=== PATIENT | female | born 1990 | race African-American/Black ===

== ENCOUNTER 2016-05-27 08:30 | Day surgery (SDC) | payer OTHER ==
[2016-05-27 09:45] LABS: BASOPHIL 0.6 % (0-2.0); EOSINOPHIL 1.3 % (0-4.5); MCHC 30.9 g/dl (32.0-36.0); MEAN CELL VOLUME 64.7 fl (80-96); MEAN PLT VOLUME 8.3 fl (7.5-11.1); NEUTROPHILS 64.6 % (42.8-82.8); PLATELET COUNT 240 K/MM3 (134-434); RDW 19.3 % (11.6-15.6); WHITE BLOOD COUNT 5.3 K/mm3 (4.0-10.0)
[2016-05-27 09:58] VITALS: BMI 34.9
[2016-05-27 11:36] LABS: HYPOCHROMIA 3+; PLATELET ESTIMATE ADEQUATE (NORMAL); POLYCHROMASIA 1+
[2016-05-27 11:37] LABS: ANISOCYTOSIS 1+; MICROCYTOSIS 2+; TARGET CELLS 1+
[2016-05-27] MEDS ORDERED: SODIUM CHLORIDE 1,000 ML IV SCH ×3 (11:45→12:15)
[2016-05-27 16:10] VITALS: BP 95/52; PULSE 90; TEMP 98.1
--- NOTE | 2016-05-27 16:11 | HP ---
Admitting History and Physical - Admission Chief Complaint: Here for blood transfusion 2/2 symptomatic iron deficiency anemia. History of Present Illness: 25 y/o with SIUP at 32.5 weeks gestation here for blood transfusion for Iron deficiency anemia. Hgb has been 7.2 for the past 30 days even on Iron therapy orally TID. Pt with occasional SOB, denies syncope or palpitations. Feels tired, but no malaise/weakness. History Source: Patient, Medical Record Limitations to Obtaining History: No Limitations - Past Medical History Cardiovascular: No: HTN Pulmonary: No: Asthma Gastrointestinal: No: Gastritis ...LMP: 10/16/15 ...: Yes ...: 3 ...Para: 1 Heme/Onc: Yes: Anemia Infectious Disease: No: HIV Psych: No: Bipolar, Depression - Past Surgical History Past Surgical History: Yes: None - Smoking History Smoking history: Never smoked Have you smoked in the past 12 months: No - Alcohol/Substance Use Hx Alcohol Use: No Home Medications - Allergies Allergies/Adverse Reactions: Allergies Allergy/AdvReac Type Severity Reaction Status Date / Time No Known Allergies Allergy Verified 05/27/16 09:38 - Home Medications Home Medications: Ambulatory Orders Ferrous Sulfate 325 mg PO TID 05/27/16 Pnv95/Ferrous Fumarate/FA [ Vitamin Tablet] 1 each PO DAILY 05/27/16 Review of Systems - Review of Systems Constitutional: reports: No Symptoms Eyes: reports: No Symptoms HENT: reports: No Symptoms Neck: reports: No Symptoms Cardiovascular: reports: Shortness of Breath (occasional) Respiratory: reports: SOB (occasional) Hematology/Lymphatic: denies: Easily Bruised Psychiatric: reports: No Symptoms Physical Examination Vital Signs: Vital Signs Temperature 97.7 F 05/27/16 11:15 Pulse Rate 86 05/27/16 15:46 Respiratory Rate 20 05/27/16 15:46 Blood Pressure 118/61 05/27/16 15:46 O2 Sat by Pulse Oximetry (%) Constitutional: Yes: Well Nourished, No Distress, Calm Cardiovascular: Yes: Tachycardia Gastrointestinal: Yes: Other (gravid abdomen) Neurological: Yes: Alert, Oriented Psychiatric: Yes: Alert, Oriented Labs: CBC, BMP 05/27/16 09:15 Problem List - Problems (1) Anemia affecting in third trimester Code(s): O99.013 - ANEMIA COMPLICATING , THIRD TRIMESTER Assessment/Plan 25 y/o with SIUP at 32.5 weeks with iron deficiency anemia (Hgb 7.1) - NST reactive - for 2 units PRBC, will repeat CBC next week as outpatient - regular diet - discharge home after transfusion
== END 2016-05-27 16:35 | disposition home or self-care (01) ==
LOC: JLDR 08:30 → JBLOOD 08:30
PROVIDERS: ATTEND Obstetrics & Gynecology
PROC: 30233N1 Transfusion of Nonautologous Red Blood Cells into Peripheral Vein, Percutaneous Approach (ICD-10-PCS; principal; 2016-05-27)
DX: O99.013 Anemia complicating pregnancy, third trimester (principal); Z3A.32 32 weeks gestation of pregnancy
CPT/HCPCS: 36415; 36430; 59025; 85025; 86850; 86900; 86901; 86922; P9038; P9058

== ENCOUNTER 2016-07-19 08:00 | Inpatient (IN) | payer OTHER ==
[2016-07-19] MEDS ORDERED: TUBERCULIN PPD 5 TU/0.1ML SYRINGE (IN PATIENT USE ONLY) ID ONE (08:30)
[2016-07-19] MEDS ORDERED: DINOPROSTONE 10 MG VAGINAL SUPPOSITORY VG ONE (08:34)
[2016-07-19] MEDS ORDERED: BUTORPHANOL TARTRATE 1 MG/ML VIAL IVPB ONE (08:35)
[2016-07-19] MEDS ORDERED: PROMETHAZINE HCL 25 MG/1 ML VIAL IVPUSH ONE (08:35)
[2016-07-19 08:56] LABS: MCH 20.8 pg (25.7-33.7); MCHC 30.5 g/dl (32.0-36.0); MEAN CELL VOLUME 68.2 fl (80-96); MEAN PLT VOLUME 8.4 fl (7.5-11.1); PLATELET COUNT 197 K/MM3 (134-434); RDW 22.2 % (11.6-15.6); WHITE BLOOD COUNT 5.3 K/mm3 (4.0-10.0)
[2016-07-19 09:07] LABS: INR 1.1 (0.82-1.09); PROTHROMBIN TIME (PATIENT) 12.1 SEC (9.98-11.88)
[2016-07-19 09:11] LABS: ACTIVATED PTT 32.4 SECONDS (26.9-34.4)
[2016-07-19 09:19] LABS: CALCIUM 8.9 mg/dL (8.5-10.1); CREATININE 0.6 mg/dL (0.55-1.02)
[2016-07-19 09:23] VITALS: BMI 34.9
--- NOTE | 2016-07-19 09:26 | HP ---
Past Medical History - Admission History of Present Illness: 25 y/o with SIUP at 40.2 weeks here or elective labor induction. Patient has h/o X1 and SAB X 1. The patient's has been complicated by severe anemia. The patient underwent blood transfusion of 2 units PRBC in her 3rd trimester/May 2016. The patient otherwise has had normal testing- NIPT and carrier screening negative. +FM, no VB/LOF. no Ctx. GBS negative, HIV negative. History Source: Patient, Medical Record - Past Medical History Cardiovascular: No: HTN, ID Pulmonary: No: Asthma, COPD Gastrointestinal: No: Constipation, GERD Hepatobiliary: No: Hepatitis B, Hepatitis C Reproductive: No: Fibroids, Polycystic Ovary Syndrome ...: 3 ...Para: 1 ...Spon : 1 Heme/Onc: Yes: Anemia Infectious Disease: Yes: STD's (h/o chlamydia in remote past). No: HIV, MRSA Psych: No: Anxiety, Bipolar, Depression Endocrine: No: Diabetes Mellitus, Hypothyroidism - Past Surgical History Past Surgical History: Yes: None Hx Myomectomy: No Hx Transabdominal Cerclage: No - Smoking History Smoking history: Never smoked Have you smoked in the past 12 months: No - Alcohol/Substance Use Hx Alcohol Use: No - Social History Usual Living Arrangement: Yes: With Spouse ADL: Independent History of Recent Travel: No Home Medications - Allergies Allergies/Adverse Reactions: Allergies Allergy/AdvReac Type Severity Reaction Status Date / Time No Known Allergies Allergy Verified 06/30/16 01:17 - Home Medications Home Medications: Ambulatory Orders Ferrous Sulfate 325 mg PO BID 05/27/16 Pnv95/Ferrous Fumarate/FA [ Vitamin Tablet] 1 each PO DAILY 05/27/16 Review of Systems - Review of Systems Constitutional: reports: No Symptoms Eyes: reports: No Symptoms HENT: reports: No Symptoms Neck: reports: No Symptoms Cardiovascular: reports: No Symptoms Respiratory: reports: No Symptoms Gastrointestinal: reports: No Symptoms Genitourinary: reports: No Symptoms Breasts: reports: No Symptoms Reported Musculoskeletal: reports: No Symptoms Integumentary: reports: No Symptoms Neurological: reports: No Symptoms Endocrine: reports: No Symptoms Hematology/Lymphatic: reports: No Symptoms Psychiatric: reports: No Symptoms Physical Exam - Maternity Constitutional: Yes: Well Nourished, No Distress, Calm Eyes: Yes: Conjunctiva Clear, EOM Intact HENT: Yes: Atraumatic, Normocephalic Neck: Yes: Supple, Trachea Midline Cardiovascular: Yes: Regular Rate and Rhythm Lungs: Clear to auscultation - Abdominal Exam/OB Fundal Height: 40 Number of Fetuses: Single Presentation: Vertex Contractions: Yes Regularity: Irregular Intensity: Unaware Monitor Mode: External Category: I Accelerations: Uniform Decelerations: None - Vaginal Exam/OB Vaginal Bleediing: No Dilatation (cm): 2.5 Effacement (%): 0 Amniotic Membrane Status: Intact Presentation: Vertex/Position Station: -3 - Physical Exam Psychiatric: Yes: Alert, Oriented - Labs Lab Results: CBC, BMP 07/19/16 08:40 Hemorrhage Risk Assessment - Risk Factors Medium Risk Factors: Yes: Hematocrit < 30% & other High Risk Factors: Yes: None Risk Score: 1 Risk Level: Medium Risk Problem List - Problems (1) Term Code(s): Z34.80 - ENCOUNTER FOR SUPRVSN OF NORMAL , UNSP TRIMESTER (2) Anemia affecting in third trimester Code(s): O99.013 - ANEMIA COMPLICATING , THIRD TRIMESTER Assessment/Plan 25 y/o with SIUP at 40.2 weeks, elective labor induction - AFVSS - FHTS cat 1 - labor induction, cervidil placed at 9am. Remove in 12 hours and start pitocin - GBS negative - Anemia - Hgb 8.1, IV access started. 2 units PRBC on hold for patient if needed.
[2016-07-19] MEDS: DEXTROSE 5%-LACTATED RINGERS 1,000 ML IV SCH ×2 (10:00→18:29)
[2016-07-19 12:03] LABS: PLATELET ESTIMATE ADEQUATE (NORMAL)
--- NOTE | 2016-07-19 22:21 | PN ---
Ante-Partal Exam - Subjective Subjective: Pt sleepy after stadol Vital Signs: Vital Signs Temperature 98.2 F 07/19/16 20:00 Pulse Rate 86 07/19/16 21:00 Respiratory Rate 18 07/19/16 21:00 Blood Pressure 122/80 07/19/16 21:00 O2 Sat by Pulse Oximetry (%) Bleeding: No Headache: No Visual changes: No Right upper quadrant pain: No - Contractions Contractions: Yes Regularity: Irregular Intensity: Mild/Mod Monitor Mode: External - Exam during Labor Category: I Monitor Accelerations: Absent Monitor Decelerations: None Exam: Vaginal (cervidil removed) Dilatation (cm): 3 cm Effacement (%): 70 Amniotic Membrane Status: Intact Presentation: Vertex Station: -1 - Assessment/Plan Assessment/Plan: iup at 40 weeks induction Plan pitocin augmentation
[2016-07-19] MEDS ORDERED: OXYTOCIN 15 UNITS/ LR 250 ML 250 ML IVPB SCH (22:30)
[2016-07-20] MEDS: OXYTOCIN 20 UNITS in 0.9% NS 1,000 ML IV SCH ×2 (01:15→02:57)
--- NOTE | 2016-07-20 01:24 | PN ---
Ante-Partal Exam - Subjective Subjective: Pt feels like pushing Vital Signs: Vital Signs Temperature 98.2 F 07/20/16 00:00 Pulse Rate 71 07/20/16 00:00 Respiratory Rate 18 07/20/16 00:00 Blood Pressure 120/64 07/20/16 00:00 O2 Sat by Pulse Oximetry (%) Bleeding: No Headache: No Visual changes: No Right upper quadrant pain: No - Contractions Contractions: Yes Regularity: Regular Intensity: Mod/Strong Monitor Mode: External - Exam during Labor Heart Rate: 140 Variability: Moderate Category: I Monitor Accelerations: Present Monitor Decelerations: None Exam: Vaginal Dilatation (cm): 10 Effacement (%): 100 Amniotic Membrane Status: Intact Presentation: Vertex Station: +2 - Intrapartum Hemorrhage Risk Risk Score: 0 Risk Level: Low Risk - Assessment/Plan Assessment/Plan: FUlly dilated Plan anticipate vaginal delivery
--- NOTE | 2016-07-20 01:26 | PN ---
Delivery - Delivery Vaginal Delivery: No Problems Type of Anesthesia: None Episiotomy/Laceration: 1st degree EBL (cc): 450 (Shoulders dleivered without comp Nuchal cord X 1 1st degree repaired with 2-0 chromic suture) Delivery, Single - [place] Feeding Plan Initial Plan: Exclusive throughout hospitalization
[2016-07-20] MEDS ORDERED: WITCH HAZEL 50% (TUCKS) 40 PAD/JAR PAD TP PRN (01:28)
[2016-07-20] MEDS ORDERED: BENZOCAINE 20% 57 GM BOTTLE TP PRN (01:28)
[2016-07-20] MEDS ORDERED: METHYLERGONOVINE MALEATE 0.2 MG/1 ML AMP IM PRN (01:28)
[2016-07-20] MEDS ORDERED: BISACODYL 10 MG SUPP.RECT RC PRN (01:28)
[2016-07-20] MEDS ORDERED: BENZOCAINE 28 GM HEMORRHOIDAL OINTMENT TP PRN (01:28)
[2016-07-20 01:45] LABS: ARTERIAL BLOOD GAS BASE EXCESS -2.9 meq/l (-2-2); ARTERIAL BLOOD GAS HCO3 23.9 meq/L (22-26); ARTERIAL BLOOD GAS PO2 21.3 mmHg (80-100); ARTERIAL BLOOD GAS pH 7.28 (7.35-7.45); LPM/O2% 21%; PT. ON O2? NO
[2016-07-20 01:46] LABS: TYPE OF O2 ROOM AIR
[2016-07-20 01:49] LABS: VENOUS PH 7.37 (7.32-7.42)
[2016-07-20 01:50] LABS: VENOUS BLOOD GAS HCO3 21.8 meq/L (19-25)
[2016-07-20] MEDS: IBUPROFEN 600 MG TABLET (FP) PO PRN (03:30)
[2016-07-20] MEDS: FERROUS SO4 325 MG TABLET (FP) PO SCH ×3 (09:34→17:05)
[2016-07-20] MEDS: PRENATAL VITAMINS W/ FOLIC ACID TABLET (FP) PO SCH (09:34)
[2016-07-20 11:46] LABS: MCH 20.7 pg (25.7-33.7); MEAN CELL VOLUME 68.9 fl (80-96); MEAN PLT VOLUME 8.8 fl (7.5-11.1); PLATELET COUNT 208 K/MM3 (134-434); RDW 22.4 % (11.6-15.6); WHITE BLOOD COUNT 10.9 K/mm3 (4.0-10.0)
[2016-07-20 19:57] LABS: HYPOCHROMIA 3+; PLATELET ESTIMATE ADEQUATE (NORMAL)
[2016-07-20 19:58] LABS: ANISOCYTOSIS 3+; MICROCYTOSIS 2+; TEAR DROP CELLS 1+
[2016-07-21] MEDS: FERROUS SO4 325 MG TABLET (FP) PO SCH ×3 (08:16→17:33)
--- NOTE | 2016-07-21 08:28 | PN ---
Post Progress Note - Subjective Subjective: 25 yo Para 2, status post vaginal delivery, seen and evaluated. Doing well, no complaints. Post Day: 1 Type of Delivery: Vital Signs: Vital Signs Temperature 98.4 F 07/20/16 22:00 Pulse Rate 86 07/20/16 22:00 Respiratory Rate 20 07/20/16 22:00 Blood Pressure 126/61 07/20/16 22:00 O2 Sat by Pulse Oximetry (%) 99 07/20/16 02:45 Breast Exam: Yes: Soft Uterus: Yes: Fundus Firm Incision: Yes: Dressing dry and intact Abdomen/GI: Yes: Abdomen soft, Tolerating PO Lochia: Yes: Rubra Lochia, amount: Moderate Extremities: Yes: Calves non-tender Activity: Ambulating - Labs Labs: CBC WBC 10.9 K/mm3 (4.0-10.0) H D 07/20/16 11:00 RBC 3.92 M/mm3 (3.60-5.2) 07/20/16 11:00 Hgb 8.1 GM/dL (10.7-15.3) L 07/20/16 11:00 Hct 27.0 % (32.4-45.2) L 07/20/16 11:00 MCV 68.9 fl (80-96) L 07/20/16 11:00 MCHC 30.0 g/dl (32.0-36.0) L 07/20/16 11:00 RDW 22.4 % (11.6-15.6) H 07/20/16 11:00 Plt Count 208 K/MM3 (134-434) 07/20/16 11:00 MPV 8.8 fl (7.5-11.1) 07/20/16 11:00 Neutrophils % 80.0 % (42.8-82.8) 07/20/16 11:00 Lymphocytes % 10.0 % (8-40) D 07/20/16 11:00 Monocytes % 6.0 % (3.8-10.2) 07/20/16 11:00 Basophils % 1.0 % (0-2.0) 07/19/16 08:40 Band Neutrophils 4.0 % (0-10) 07/20/16 11:00 Differential Comment Manual diff done 07/19/16 08:40 Platelet Estimate Adequate (NORMAL) 07/20/16 11:00 Hypochromic-Microcytic 3+ 07/20/16 11:00 Anisocytosis 3+ 07/20/16 11:00 Microcytosis 2+ 07/20/16 11:00 Tear Drop Cells 1+ 07/20/16 11:00 Problem List - Problems (1) Status post normal vaginal delivery Code(s): [id number] - Assessment/Plan Status post vaginal delivery Stable Continue routine care
[2016-07-21 08:46] LABS: BASOPHIL 0.9 % (0-2.0); EOSINOPHIL 1.2 % (0-4.5); MCHC 30.6 g/dl (32.0-36.0); MEAN CELL VOLUME 68.6 fl (80-96); MEAN PLT VOLUME 8.3 fl (7.5-11.1); NEUTROPHILS 68.2 % (42.8-82.8); PLATELET COUNT 177 K/MM3 (134-434); RDW 22.4 % (11.6-15.6); WHITE BLOOD COUNT 7.9 K/mm3 (4.0-10.0)
[2016-07-21] MEDS: PRENATAL VITAMINS W/ FOLIC ACID TABLET (FP) PO SCH (10:04)
[2016-07-21] MEDS: ACETAMINOPHEN 325 MG TABLET (FP) PO PRN (11:02)
[2016-07-21] MEDS: IBUPROFEN 600 MG TABLET (FP) PO PRN (11:03)
[2016-07-21] MEDS ORDERED: SENNOSIDES/DOCUSATE COMBO (SENNA PLUS) TABLET (UD) PO PRN (22:00)
[2016-07-22 07:14] LABS: BASOPHIL 0.5 % (0-2.0); EOSINOPHIL 2.7 % (0-4.5); MCH 22.8 pg (25.7-33.7); MCHC 31.9 g/dl (32.0-36.0); MEAN CELL VOLUME 71.3 fl (80-96); MEAN PLT VOLUME 8.7 fl (7.5-11.1); NEUTROPHILS 75.3 % (42.8-82.8); PLATELET COUNT 205 K/MM3 (134-434); RDW 22.9 % (11.6-15.6); WHITE BLOOD COUNT 10.2 K/mm3 (4.0-10.0)
--- NOTE | 2016-07-22 07:34 | DS ---
Physical Exam-WIRE BENDER HAND Vital Signs: Vital Signs Temperature 98.4 F 07/21/16 22:00 Pulse Rate 91 H 07/21/16 22:00 Respiratory Rate 18 07/21/16 22:00 Blood Pressure 112/71 07/21/16 22:00 O2 Sat by Pulse Oximetry (%) 99 07/20/16 02:45 Labs: CBC, BMP 07/19/16 08:40 Delivery - Delivery Vaginal Delivery: No Problems Type of Anesthesia: None Episiotomy/Laceration: 1st degree EBL (cc): 300 Delivery, Single - Stages of Labor Date 1st Stage Initiatied: 07/19/16 Time 1st Stage Initiated: 20:30 Date 2nd Stage Initiated: 07/20/16 Time 2nd Stage Initiated: 01:05 Date of Delivery: 07/20/16 Time of Delivery: 01:10 Time Placenta Delivered: 01:15 - Condition of Infant Fish Butcher/Centrifuge Separator Tender Present: No Gender: Female Weight: 8 lb 2 oz Position: Left, OA Total Hours ROM (Hrs/Mins): 15m - 1 Minute Total Score: 9 5 Minutes Total Score: 9 - Feeding Plan Initial Plan: Exclusive throughout hospitalization Discharge Summary Reason For Visit: INDUCTION OF LABOR Current Active Problems Status post normal vaginal delivery (Acute) Term (Acute) Procedures: Principal: normal vaginal delivery Hospital Course: Pt admitted on 07/19 for scheduled labor induction. complicated by anemia - Hgb on admission was 81. She underwent uncomplicated normal on . After delivery, pt had a Hgb 6.6 and was transfused 2 units of packed red blood cells. The patient otherwise had a normal uncomplicated recovery and was discharged home on post day 2. Condition: Good - Instructions Diet, Activity, Other Instructions: Physical activity Resume your normal everyday activity as tolerated no heavy lifting or exercise until seen by your surgeon. You may walk unlimited addi of and climb stairs. You may resume driving the car when you feel safe and comfortable behind the wheel. No sexual activity as instructed. Wound care If you have a bandage, leave it on, and keep dry for 48-72 hours. After that time discard the outer bandage. If they are tapes on the skin under the out of bandage leave them in place. They will peel off in the next 7 to 10 days. Do Not Peel them off. You may shower the day after surgery. If there are tapes present on the skin, you may shower over them. Diet There are no dietary restrictions. Eat healthy, high-fiber foods. Drink 6 to 8 glasses of liquid each day. This will assist in keeping your bowels are regular. Pain management You may take Tylenol or acetaminophen or Ibuprofen (for example, Motrin, Advil etc.) from my pain prescription medication is ordered should be taken as prescribed for moderate to severe pain. Call MD for any of the following: Severe pain not relieved by medication Fever of 101 or higher Excessive bleeding or drainage on dressing Inability to urinate Referrals: Anna Jesus MD [Staff Physician] - Disposition: HOME - Home Medications Comprehensive Discharge Medication List: Ambulatory Orders Ferrous Sulfate 325 mg PO BID 05/27/16 Pnv95/Ferrous Fumarate/FA [ Vitamin Tablet] 1 each PO DAILY 05/27/16 Ibuprofen [Motrin -] 600 mg PO QID PRN #28 tablet 07/20/16
[2016-07-22] MEDS: FERROUS SO4 325 MG TABLET (FP) PO SCH ×2 (08:12→11:50)
[2016-07-22 08:19] VITALS: BP 125/65; PULSE 80; TEMP 99
[2016-07-22] MEDS: PRENATAL VITAMINS W/ FOLIC ACID TABLET (FP) PO SCH (09:19)
[2016-07-22] MEDS: IBUPROFEN 600 MG TABLET (FP) PO PRN (09:20)
[2016-07-22] MEDS: ACETAMINOPHEN 325 MG TABLET (FP) PO PRN (09:20)
[2016-07-22 09:25] LABS: PLATELET ESTIMATE ADEQUATE (NORMAL)
== END 2016-07-22 13:10 | disposition home or self-care (01) | DRG 560 ==
LOC: JLDR 08:00 → J3W 07-20 03:55
PROVIDERS: ADMIT Obstetrics & Gynecology; ATTEND Obstetrics & Gynecology
PROC: 3E0P7GC Introduction of Other Therapeutic Substance into Female Reproductive, Via Natural or Artificial Opening (ICD-10-PCS; 2016-07-19)
PROC: 10E0XZZ Delivery of Products of Conception, External Approach (ICD-10-PCS; principal; 2016-07-20)
PROC: 0HQ9XZZ Repair Perineum Skin, External Approach (ICD-10-PCS; 2016-07-20)
DX: O99.02 Anemia complicating childbirth (principal); D64.9 Anemia, unspecified; O69.81X0 Labor and delivery complicated by cord around neck, without compression, not applicable or unspecified; O70.0 First degree perineal laceration during delivery; O48.0 Post-term pregnancy; Z3A.40 40 weeks gestation of pregnancy; Z37.0 Single live birth
CPT/HCPCS: 36415; 36430; 36600; 59409; 80048; 82803; 85025; 85610; 85730; 86593; 86850; 86900; 86901; 86922; P9038; P9058

== ENCOUNTER 2018-10-30 16:30 | Emergency (ER) | payer OTHER ==
[2018-10-30 16:39] VITALS: BP 118/53; PULSE 80; TEMP 98.3; BMI 35.2
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
[2018-10-30] MEDS ORDERED: KETOROLAC TROMETHAMINE 60 MG/2 ML VIAL IM ONE (17:32)
[2018-10-30] MEDS ORDERED: KETOROLAC TROMETHAMINE 60 MG/2 ML VIAL ONE (17:37)
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
== END 2018-10-30 18:05 | disposition home or self-care (01) ==
LOC: JERFT 16:30
PROC: 3E0233Z Introduction of Anti-inflammatory into Muscle, Percutaneous Approach (ICD-10-PCS; principal; 2018-10-30)
DX: T07.XXXA Unspecified multiple injuries, initial encounter (principal); M62.838 Other muscle spasm; X50.0XXA Overexertion from strenuous movement or load, initial encounter; Y93.89 Activity, other specified; Y92.218 Other school as the place of occurrence of the external cause; Y99.0 Civilian activity done for income or pay; D64.9 Anemia, unspecified; E07.9 Disorder of thyroid, unspecified
CPT/HCPCS: 84703; 96372; 99281-25

== ENCOUNTER 2019-01-08 15:47 | Emergency (ER) | payer OTHER ==
[2019-01-08 16:03] VITALS: BP 119/45; PULSE 90; TEMP 98.7; BMI 36.2
--- NOTE | 2019-01-08 16:03 | PDOC ---
Rapid Medical Evaluation Chief Complaint: Injury Time Seen by Provider: 01/08/19 16:00 Medical Evaluation: Allergies Allergy/AdvReac Type Severity Reaction Status Date / Time No Known Allergies Allergy Verified 10/30/18 16:37 01/08/19 16:01 Pt c/o: fell on tailbone at work, took motrin with min relief Pt on brief exam: tenderness to coccyx Pt ordered for: sacral xray Pt to proceed to the ED Discharge Disposition - Diagnosis Coccyx pain - Referrals - Patient Instructions - Post Discharge Activity
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
== END 2019-01-08 17:32 | disposition home or self-care (01) ==
LOC: JERFT 15:47
DX: S30.0XXA Contusion of lower back and pelvis, initial encounter (principal); W18.39XA Other fall on same level, initial encounter; Y93.89 Activity, other specified; Y92.218 Other school as the place of occurrence of the external cause; Y99.0 Civilian activity done for income or pay; D64.9 Anemia, unspecified; E07.9 Disorder of thyroid, unspecified
CPT/HCPCS: 72220-TC-FY; 99281-25

== ENCOUNTER 2019-04-03 13:43 | Emergency (ER) | payer OTHER ==
[2019-04-03 14:04] VITALS: BMI 34.2
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
[2019-04-03 15:48] VITALS: BP 113/37; PULSE 65; TEMP 97.9
--- NOTE | 2019-04-05 13:57 | EKG ---
Test Reason : Blood Pressure : / mmHG Vent. Rate : 067 BPM Atrial Rate : 067 BPM P-R Int : 164 ms QRS Dur : 096 ms QT Int : 406 ms P-R-T Axes : 063 072 032 degrees QTc Int : 429 ms NORMAL SINUS RHYTHM POSSIBLE LEFT ATRIAL ENLARGEMENT EARLY REPOLARIZATION NO PREVIOUS ECGS AVAILABLE Confirmed by GWENDOLYN HAIRSTON MD ([id number]) on 04/05/2019 1:56:36 PM Referred By: Confirmed By:GWENDOLYN HAIRSTON MD
== END 2019-04-03 17:37 | disposition home or self-care (01) ==
LOC: JERFT 13:43
DX: T59.893A Toxic effect of other specified gases, fumes and vapors, assault, initial encounter (principal); R06.02 Shortness of breath; Y92.218 Other school as the place of occurrence of the external cause; Y99.0 Civilian activity done for income or pay; Y07.9 Unspecified perpetrator of maltreatment and neglect
CPT/HCPCS: 71046-TC-FY; 93005; 93010; 99281-25

== ENCOUNTER 2021-11-09 14:50 | Emergency (ER) | payer OTHER ==
[2021-11-09 14:56] VITALS: TEMP 98.1; BMI 38.7
[2021-11-09] MEDS ORDERED: ERYTHROMYCIN *INJECTION* 500 MG VIAL IVPB ONE (15:54)
[2021-11-09] MEDS ORDERED: AMPICILLIN - 2 GM in SODIUM CHLORIDE 100 ML IVPB ONE (15:54)
[2021-11-09] MEDS ORDERED: AMPICILLIN SODIUM 2 GM VIAL ONE (15:59)
[2021-11-09 16:09] LABS: BASO % 0.3 % (0-2.0); EOS % 2.1 % (0-4.5); HEMATOCRIT 34.8 % (32.4-45.2); HEMOGLOBIN 11.9 GM/dL (10.7-15.3); LYMPH % 16.5 % (8-40); MCH 29.7 pg (25.7-33.7); MCHC 34.1 g/dl (32.0-36.0); MEAN CELL VOLUME 87.2 fl (80-96); MEAN PLT VOLUME 9.3 fl (7.5-11.1); MONO % 10.9 % (3.8-10.2); NEUT % 70.2 % (42.8-82.8); PLATELET COUNT 206 10^3/uL (134-434); RBC 3.99 M/mm3 (3.60-5.2); RDW 13.2 % (11.6-15.6); WHITE BLOOD COUNT 6.9 K/mm3 (4.0-10.0)
[2021-11-09] MEDS ORDERED: ERYTHROMYCIN INJECTION - 250 MG in SODIUM CHLORIDE 100 ML IVPB ONE (16:30)
[2021-11-09 16:39] LABS: ALBUMIN 3.4 g/dl (3.4-5.0); BLOOD UREA NITROGEN 7.3 mg/dL (7-18); CALCIUM 9.4 mg/dL (8.5-10.1)
[2021-11-09 16:42] LABS: CREATININE 0.5 mg/dL (0.55-1.3)
[2021-11-09 16:44] LABS: BILIRUBIN,TOTAL 0.6 mg/dL (0.2-1); TOT PROT 7.8 g/dl (6.4-8.2)
[2021-11-09 17:14] LABS: EPI CELLS >36 /uL (0-25.1); HYALINE CASTS 2 /uL (0-3.1); URINE APPEARANCE CLOUDY; URINE BACTERIA 755 /uL (0-1359); URINE BILIRUBIN NEGATIVE (NEGATIVE); URINE COLOR YELLOW; URINE GLUCOSE (UA) NEGATIVE (NEGATIVE); URINE KETONE NEGATIVE (NEGATIVE); URINE LEUK ESTERASE 2+ (NEGATIVE); URINE NITRITE NEGATIVE (NEGATIVE); URINE PROTEIN NEGATIVE (NEGATIVE); URINE RBC 15 /uL (0-23.9); URINE UROBILINOGEN 0.2 mg/dL (0.2-1.0); URINE WBC 26 /uL (0-25.8)
[2021-11-09 18:18] VITALS: BP 124/61; PULSE 88; RESP 16
[2021-11-10 02:48] LABS: MAGNESIUM 1.7 mg/dL (1.8-2.4)
== END 2021-11-09 16:25 | disposition short-term general hospital (02) ==
LOC: JER 14:50
DX: N93.8 Other specified abnormal uterine and vaginal bleeding (principal)
CPT/HCPCS: 36415; 80053; 81003; 83735; 84702; 85025; 86850; 86900; 86901; 87086; 87186; 99284-25; C9803-CS; U0003; U0005